=== PATIENT | female | born 1950 | race Caucasian/White ===

== ENCOUNTER 2016-12-10 09:10 | Day surgery (SDC) | payer OTHER, MEDICARE ==
[~2016-12-10] VITALS: Ht 154.9 cm; Wt 79.9 kg
[~2016-12-10 09:10] MED LIST: ALPRAZOLAM0.5 MG PO; AMLODIPINE BESYL5 MG PO; ASPIRIN81 M2 PO; CELEXA40 MG PO; CITALOPRAM HBR40 MG PO; CYANOCOBALAM1000 MCG PO; FLOVENT DISKUS1 DIS1 IH; GLUCOPHAGE500 MG PO; LEVO-T112 MCG PO; LEVOTHYROXINE112 MCG PO; LITHIUM CARBON300 MG PO; MUCUS ER600 MG PO; NORVASC5 MG PO; OMEPRAZOLE20 MG PO; PRAVACHOL40 MG PO; PRAVASTATIN SOD40 MG PO; PRILOSEC20 MG PO; PROAIR HFA8.5 GM IH; ROBITUSSIN NIG118 ML PO; TESSALON PERLE100 MG PO; VITAMIN D31000 UNIT PO; XANAX0.5 MG PO
[2016-12-10 09:48] VITALS: BP 146/83
[2016-12-10 09:52] LABS: POINT-OF-CARE METER ID UU14174212
[2016-12-10 14:23] LABS: POINT-OF-CARE METER ID UU13113675
[2016-12-10 14:55] VITALS: BP 181/83
[2016-12-10 15:43] VITALS: BP 145/78
== END 2016-12-10 16:02 | disposition home or self-care (01) ==
LOC: SDC 09:10
PROVIDERS: Podiatrist Foot & Ankle Surgery
DX: M20.11 Hallux valgus (acquired), right foot (principal); I10 Essential (primary) hypertension; E11.9 Type 2 diabetes mellitus without complications; E89.0 Postprocedural hypothyroidism; Z85.850 Personal history of malignant neoplasm of thyroid
CPT/HCPCS: 82948; C1713; J0690; J1100; J2250; J3010; S0020